=== PATIENT | female | born 1955 | race Caucasian/White ===

== ENCOUNTER 2017-07-14 07:30 | Inpatient (IN) | payer OTHER ==
[~2017-07-14] VITALS: Ht 167.6 cm; Wt 88.5 kg
[~2017-07-14 07:30] MED LIST: ASPIR 8181 MG ORAL; AZOR 5-40 MG T1 EACH ORAL; IBUPROFEN600 MG ORAL; TRAMADOL HCL50 MG ORAL; XANAX0.5 MG ORAL
[2017-08-04] VITALS (14 sets, daily range): BP systolic 94–120; BP diastolic 36–67
[2017-08-04] MEDS ORDERED: BREO ELLIPTA 21 EACH IH (07:08)
[2017-08-04] MEDS ORDERED: LIPITOR20 MG ORAL (07:08)
[2017-08-04] MEDS ORDERED: NORCO 5-325 TA1 EACH ORAL (07:08)
[2017-08-04] MEDS ORDERED: PROVENTIL HFA6.7 G1 IH (07:08)
[2017-08-04] MEDS ORDERED: METOPROLOL SUCC50 MG ORAL (07:08)
[2017-08-04] MEDS ORDERED: SPIRONOLACTONE100 MG ORAL (07:08)
[2017-08-04] MEDS ORDERED: EPINEPHrine 1mg/1ml Amp ONE (07:30)
[2017-08-04] MEDS ORDERED: Pantoprazole Inj ONE ×2 (07:30→07:33)
[2017-08-04] MEDS ORDERED: Thrombin 5000 units TOPIC ONE ×2 (07:31→13:27)
[2017-08-04] MEDS ORDERED: Thrombin 5000 units spray kit TOPIC ONE ×2 (07:31→07:33)
[2017-08-04] MEDS ORDERED: Bacitracin 50000 Units Vial ONE (07:32)
[2017-08-04] MEDS ORDERED: Gelfoam Absorbable 1gm powder pkt TOPIC ONE (07:32)
[2017-08-04] MEDS ORDERED: Bupivacaine 0.5% Inj 30 ml vial INJ ONE (07:32)
[2017-08-04] MEDS ORDERED: Succinylcholine 20mg/ml 10ml vial ONE (07:33)
[2017-08-04] MEDS ORDERED: Zemuron 50mg/5ml Inj IV ONE (07:33)
[2017-08-04] MEDS ORDERED: fentaNYL 100 mcg/2 mL IV ONE ×2 (07:37→09:24)
[2017-08-04] MEDS ORDERED: Midazolam 2mg/2ml Inj ONE (07:37)
[2017-08-04] MEDS ORDERED: Lidocaine 1% MPF 10mg/ml 5ml ONE (07:42)
[2017-08-04] MEDS ORDERED: NS Irrig 1000ml ONE (08:00)
[2017-08-04] MEDS ORDERED: Propofol 1,000mg/ 100ml btl IV ONE (08:00)
[2017-08-04] MEDS ORDERED: Sterile Water Irrig 1000ml IRRIG ONE (08:00)
[2017-08-04] MEDS ORDERED: Vancomycin 1gm inj IVPB ONE (08:23)
--- NOTE | 2017-08-04 08:28 | Anethesia Preoperative Eval ---
Anesthesia Pre-op PMH/ROS General Date of Evaluation: Aug 04, 2017 Time of Evaluation: 08:17 Anesthesiologist: Marie ASA Score: ASA 2 Mallampati Score Class I : Soft palate, uvula, fauces, pillars visible Class II: Soft palate, uvula, fauces visible Class III: Soft palate, base of uvula visible Class IV: Only hard plate visible Mallampati Classification: Class II Surgeon: William Diagnosis: Lumbar radiculopathy Surgical Procedure: ALIF L5-S1 Anesthesia History: none Allergies: Coded Allergies: AMLODIPINE (Verified Allergy, Severe, ICY COLD FEELING ALL OVER THE BODY , 08/04/17) Chicken Meat (Verified Allergy, Severe, Hives, rash, anaphylaxis , 08/04/17 ) MORPHINE (Verified Allergy, Severe, Extremem contact dermatitis, 08/04/17) LISINOPRIL (Verified Allergy, Intermediate, white checkered spots all over body, 08/04/17) ADHESIVE TAPE (Verified Adverse Reaction, Severe, Itching/Rash, 08/04/17) CODEINE (Verified Adverse Reaction, Severe, Itching, 08/04/17) Past Medical History Cardiovascular: Reports: HTN, CAD - negative perfusion scan; Denies: MO, valve dz, arrhythmia, other Pulmonary: Denies: asthma, COPD, LUZ MARIA, other Gastrointestinal/Genitourinary: Reports: GERD; Denies: CRI, ESRD, other Neurologic/Psychiatric: Reports: depression/anxiety, other - chronic pain; Denies: dementia, CVA, TIA Endocrine: Reports: steroids - multiple epidural injections; Denies: DM, hypothyroidism, other HEENT: Denies: cataract (L), cataract (R), glaucoma, ANDREAFSKI (L), ANDREAFSKI (R), other Hematology/Immune: Denies: anemia, DVT, bleeding disorder, other Musculoskeletal/Integumentary: Denies: OA, RA, DJD, DDD, edema, other Other: other - overweight PMH Narrative: as above PSxH Narrative: Cervical spine x 2, hysterectomy. Anesthesia Pre-op Phys. Exam Physician Exam Last Vital Signs Date Time Temp Pulse Resp B/P (MAP) Pulse Ox O2 Delivery O2 Flow Rate FiO2 08/04/17 07:09 97.9 56 18 106/67 97 Room Air 97.9 Constitutional: NAD Neurologic: CN 2-12 intact Cardiovascular: RRR, no M/R/G Respiratory: CTA Gastrointestinal: S/NT/ND Airway Exam Mallampati Score: Class II MO: full Neck: stiff ROM: limited Teeth: intact Dentures: no upper, no lower Anesthesia Pre-op A/P Labs see chart Studies Pre-op Studies: EKG - NSR, CXR - WNL, echo - EF 55% Risk Assessment & Plan Assessment: ASA 2 Plan: GA with ETT PONV prevention, neuromonitoring Status Change Before Surgery: No Pre-Antibiotics Drug: Vanco 1 gr. Given Within 1 Hr of Incision: Yes Time Given: 09:20 LUIS CASTILLO M.D. Aug 04, 2017 08:28
--- NOTE | 2017-08-04 08:32 | Pre-Procedure Note/Attestation ---
Pre-Procedure Note/Attestation Complete Prior to Procedure Planned Procedure: not applicable Procedure Narrative: L5-S1 ALIF Indications for Procedure Pre-Operative Diagnosis: L5-S1 with Back pain and left radiculopathy Attestation I attest that I discussed the nature of the procedure; its benefits; risks and complications; and alternatives (and the risks and benefits of such alternatives ), prior to the procedure, with the patient (or the patient's legal merchandiser retail representative). I attest that, if there was a reasonable possibility of needing a blood transfusion, the patient (or the patient's legal merchandiser retail representative) was given the [facility] standardized written summary, pursuant to the Asif Paulina Blood Safety Act ([place] Health and Safety Code # 1645, as amended). I attest that I re-evaluated the patient just prior to the surgery and that there has been no change in the patient's H&P, except as documented below: Odell Thomas Aug 04, 2017 08:32
[2017-08-04] MEDS ORDERED: Heparin 5000 units/ml inj ONE (09:21)
[2017-08-04] MEDS ORDERED: Ketorolac 30mg Inj ONE (09:22)
[2017-08-04] MEDS ORDERED: Neostigmine 1mg/ml 10ml Inj ONE (09:37)
[2017-08-04] MEDS ORDERED: Glycopyrrolate 0.2mg/ml 1ml Vial ONE (09:40)
[2017-08-04] MEDS ORDERED: LR 1000ml 1,000 ML IVLG SCH (09:47)
[2017-08-04] MEDS ORDERED: Meperidine 50mg/ml Inj(FOR RIGORS ONLY) IV PRN (10:00)
[2017-08-04] MEDS ORDERED: Midazolam 2mg/2ml Inj IVP PRN (10:00)
[2017-08-04] MEDS ORDERED: DiphenhydrAMINE 50mg/ml Inj IVP PRN (10:00)
[2017-08-04] MEDS ORDERED: Ketorolac 30mg Inj IV PRN (10:00)
[2017-08-04] MEDS ORDERED: Hydromorphone 0.5mg/0.5ml inj IVP PRN (10:00)
[2017-08-04] MEDS ORDERED: Acetaminophen (Non formulary) 100 ML IV ONE (10:00)
[2017-08-04] MEDS ORDERED: Ropivacaine 5mg/ml Vial 30ml INJ ONE ×2 (10:53→10:59)
--- NOTE | 2017-08-04 11:19 | Brief Operative Note ---
Immediate Post Operative Note Operative Note Pre-op Diagnosis: L5-S1 with Back pain and left radiculopathy Post-op Diagnosis: same as pre-op - Low back pain with radiculopathy Anesthesia: general Specimen: yes Complications: none Condition: stable Fluids: NA Estimated Blood Loss: volume - 30 ml Drains: none Implant(s) used?: Yes - DepApieron-Odell Davila Aug 04, 2017 11:19
--- NOTE | 2017-08-04 12:13 | Diagnostic Imaging Report ---
Indication: Intraoperative imaging Technique: Intraoperative images Comparison: none Findings: Intraoperative images demonstrate anterior fusion at what is presumably L5-S1. Impression: Intraoperative imaging, as described
--- NOTE | 2017-08-04 12:52 | Immediate Post-Op Evaluation ---
Immediate Post-Op Evalulation Immediate Post-Op Evalulation Procedure: ALIF l4-L5 Date of Evaluation: Aug 04, 2017 Time of Evaluation: 11:20 IV Fluids: 1200 Blood Products: none Estimated Blood Loss: 100 Urinary Output: 150 Blood Pressure Systolic: 98 Blood Pressure Diastolic: 48 Pulse Rate: 74 Respiratory Rate: 20 O2 Sat by Pulse Oximetry: 98 Temperature (Fahrenheit): 97.8 Pain Score (1-10): 1 Nausea: No Vomiting: No Complications none Patient Status: reacts, patent, extubated, none Hydration Status: adequate LUIS CASTILLO M.D. Aug 04, 2017 12:52
[2017-08-04] MEDS ORDERED: Methocarbamol 500mg tab ORAL PRN (13:30)
[2017-08-04] MEDS ORDERED: Milk of Magnesia 30ml Ud ORAL PRN (13:30)
[2017-08-04] MEDS: Docusate 100mg cap ORAL SCH (17:38)
--- NOTE | 2017-08-04 20:28 | History and Physical ---
History of Present Illness General Date patient seen: Aug 04, 2017 Time patient seen: 20:23 Present Illness HPI I was asked to eval the patient in internal medicine consultation she ahs chele peters fusion she denies any ches tpain no palpation no diplopia Allergies: Coded Allergies: AMLODIPINE (Verified Allergy, Severe, ICY COLD FEELING ALL OVER THE BODY , 08/04/17) Chicken Meat (Verified Allergy, Severe, Hives, rash, anaphylaxis , 08/04/17 ) MORPHINE (Verified Allergy, Severe, Extremem contact dermatitis, 08/04/17) LISINOPRIL (Verified Allergy, Intermediate, white checkered spots all over body, 08/04/17) ADHESIVE TAPE (Verified Adverse Reaction, Severe, Itching/Rash, 08/04/17) CODEINE (Verified Adverse Reaction, Severe, Itching, 08/04/17) Medication History Scheduled Aspirin* (Aspir 81*), 81 MG ORAL DAILY, (Reported) Atorvastatin Calcium* (Lipitor*), 20 MG ORAL BEDTIME, (Reported) Fluticasone/Vilanterol (Breo Ellipta 200-25 Mcg INH), 1 EACH IH DAILY, (Reported ) Metoprolol Succinate* (Metoprolol Succinate*), 50 MG ORAL DAILY, (Reported) Spironolactone* (Spironolactone*), 50 MG ORAL DAILY, (Reported) Scheduled PRN Alprazolam* (Xanax*), 0.5 MG ORAL DAILY PRN for For Anxiety, (Reported) Hydrocodone Bit/Acetaminophen 5-325* ([place] 5-325*), 1 TAB ORAL Q6H PRN for For Pain, (Reported) Miscellaneous Medications Albuterol Sulfate (Proventil Hfa), 6.7 GM IH, (Reported) Discontinued Medications Amlodipine Bes/Olmesartan Med (Mac 5-40 Mg Tablet), 1 TAB ORAL DAILY, (Reported ) Discontinued Reason: Pt stopped taking med Ibuprofen* (Motrin*), 800 MG ORAL THREE TIMES A DAY, (Reported) Discontinued Reason: Pt stopped taking med Tramadol Hcl* (Ultram*), 50 MG ORAL Q6H PRN for For Pain, (Reported) Discontinued Reason: Pt stopped taking med Patient History Healthcare decision maker CAITLIN PADILLA - Resuscitation status Full Code Advanced Directive on File No Patient History Narrative past medical history hyeprtenison hyperlipid chicken allergy anxiety disorder Past surgical history cervical fusion hysterectomy right foot surgery medicaiton prio rto admit lipitor 20 daily metoprolol 50 daily alprazolam prn allergies morphjine, viocoin nad Losartan Review of Systems Constitutional: Reports: no symptoms Eye: Reports: no symptoms ENT: Reports: no symptoms Respiratory: Reports: no symptoms Cardiovascular: Reports: no symptoms Musculoskeletal: Reports: other - has painnad is itching Physical Exam General Appearance: alert HEENT: normocephalic Neck: other - no jvd Respiratory/Chest: lungs clear Cardiovascular/Chest: normal rate, regular rhythm Extremities: other - no clubbing or cyanosis Last 24 Hour Vital Signs Date Time Temp Pulse Resp B/P (MAP) Pulse Ox O2 Delivery O2 Flow Rate FiO2 08/04/17 18:08 97.8 08/04/17 17:38 97.8 08/04/17 16:00 97.2 93 19 110/52 96 97.2 08/04/17 15:30 97.8 08/04/17 13:28 97.8 08/04/17 13:06 97.8 08/04/17 13:00 97.0 52 16 120/50 100 97.0 08/04/17 12:52 208.0 74 20 98 08/04/17 12:50 98.0 52 15 111/52 97 Nasal Cannula 3.0 98.0 08/04/17 12:50 97.8 08/04/17 12:37 97.9 08/04/17 12:35 51 19 102/42 96 Nasal Cannula 3.0 08/04/17 12:20 50 20 94/41 96 Nasal Cannula 3.0 08/04/17 12:06 52 19 103/46 96 Nasal Cannula 3.0 08/04/17 12:06 97.9 08/04/17 12:02 97.8 08/04/17 11:50 51 19 104/38 96 Nasal Cannula 3.0 08/04/17 11:40 50 19 107/48 96 Nasal Cannula 3.0 08/04/17 11:32 53 14 106/46 99 Nasal Cannula 3.0 08/04/17 11:32 97.9 08/04/17 11:25 53 12 100/52 99 Simple Mask 6.0 08/04/17 11:20 59 16 110/36 99 Simple Mask 6.0 08/04/17 11:15 97.9 57 16 98/42 99 Simple Mask 6.0 97.9 08/04/17 07:09 97.9 56 18 106/67 97 Room Air 97.9 Intake and Output 08/03/17 08/04/17 19:00 07:00 # Voids 1 Height (Feet): 5 Height (Inches): 6.00 Weight (Pounds): 195 Medications Current Medications Medications (Trade) Dose Ordered Sig/Hai Route PRN Reason Start Time Stop Time Status Last Admin Dose Admin Acetaminophen (Tylenol) 650 mg Q4H PRN ORAL headache or temp>101 08/04/17 13:30 09/03/17 13:29 Acetaminophen/ Hydrocodone Bitart ([place] 5/325) 1 tab Q3H PRN ORAL Mild Pain (Pain Scale 1-3) 08/04/17 13:30 08/11/17 13:29 Docusate Sodium (Colace) 100 mg TWICE A DAY ORAL 08/04/17 18:00 09/03/17 17:59 08/04/17 17:38 Hydromorphone HCl (Dilaudid) 0.5 mg Q2H PRN SUBQ Severe Pain (Pain Scale 7-10) 08/04/17 13:30 08/11/17 13:29 08/04/17 17:38 Magnesium Hydroxide (Mom) 30 ml QIDPRN PRN ORAL Constipation 08/04/17 13:30 09/03/17 13:29 Methocarbamol (Robaxin) 1,000 mg Q6H PRN ORAL muscle spasms 08/04/17 13:30 09/03/17 13:29 Ondansetron HCl (Zofran) 4 mg Q6H PRN IVP Nausea & Vomiting 08/04/17 13:30 09/03/17 13:29 Sodium Chloride 1,000 ml @ 75 mls/hr [id number] IV 08/04/17 12:15 09/03/17 12:14 Assessment/Plan Status Narrative s/p complex spoine fusion perioperative antibioti cprophylaxis given PT OT DVT PROPHYALXIS SHE IS ION MULTIPLE MEDS WILL FOLLOW CBC AND BMP DAILY MILAGROS MARROQUIN Aug 04, 2017 20:28
[2017-08-04] MEDS: Norco 5mg/325mg tab ORAL PRN (20:56)
--- NOTE | 2017-08-04 22:30 | Operative Note - Dictated ---
DATE OF OPERATION: 08/04/2017 VASCULAR SURGEON: Kirit Maya M.D. SPINE SURGEON: Odell Thomas D.O. Shelby Millard M.D. PREOPERATIVE DIAGNOSIS: Degenerative disc disease. POSTOPERATIVE DIAGNOSIS: Degenerative disc disease. PROCEDURE PERFORMED: Anterior retroperitoneal exposure of L5-S1 vertebral interspace. INDICATIONS: This is a very pleasant female, who is seen in my office prior to surgery. She had a prior via transverse lower abdominal incision. She has no prior history of deep venous thrombosis or bleeding complications. She is made aware of the need for abdominal incision, possibility of vascular injury, possible need for blood transfusion, and deep venous thrombosis were all explicitly discussed with her. DESCRIPTION OF FINDINGS: A prior incision was used. A left retroperitoneal approach was used. There was no peritoneal or ureteral violation. There is no vascular injury. Exposure of L5-S1 was obtained below the iliac bifurcation with retraction of left iliac vessels superiorly and laterally. On completion, the peritoneum and ureter were intact. Iliac vessels were intact. Fluoroscopy was used to confirm the appropriate level prior to instrumentation. DESCRIPTION OF PROCEDURE: The patient was taken to the operative room. General anesthesia was used. IV antibiotics were given. The patient's abdomen was prepped and draped. Appropriate time-out for procedures were taken. Her prior incision was opened transversely and flaps were raised superiorly. The anterior abdominal fascia was incised longitudinally midline. A plane was identified posterior to the left rectus abdominis developed posterolaterally towards the patient's left. The retroperitoneal space entered below the arcuate line. The peritoneum and ureter were mobilized towards the patient's right exposing the left common iliac artery and vein. Dissection was carried on undersurface of left common iliac vein. The middle sacral artery and vein were ligated using bipolar electrocautery. On the left, iliac vessels were retracted superior and laterally anterior surface of L5 and S1. The Omni retractor was set in place. Fluoroscopy was then used to confirm the appropriate level. Instrumentation was performed at L5-S1 dictated separately. Upon completion, retractor was gently removed. Peritoneum and ureter were intact. Iliac vessels are intact. Anterior fascia was then closed using #1 PDS in a running fashion and the skin and subcutaneous tissue were closed with 3-0 Vicryl and 4-0 Monocryl in a running subcuticular closure technique. Estimated blood loss less than 50 mL. Complications, none. Kirit Maya M.D. DR: ISMAEL JOB#: [id number] CC:
--- NOTE | 2017-08-04 23:30 | Operative Note - Dictated ---
DATE OF OPERATION: 08/04/2017 INDICATION FOR SURGERY: The patient is a pleasant female with signs and symptoms of intractable back pain and left greater than right lumbar radiculopathy. She had attempted and failed conservative measures. Surgical and nonsurgical options were discussed. The patient requested to proceed with surgical intervention. RISKS AND BENEFITS DISCUSSION: The patient was appraised of all objectives, benefits, risks and potential complications of the procedure including, but not limited to worsening occurring status and possible need for further procedures, the risk of infection, headaches, CSF leak, possible spinal cord injury, process, injury to major blood vessels causing hemorrhage, stroke, loss of function, even . No assurance is given whether the symptoms had improved following procedure. Informed consent was obtained and secured in the chart. After the patient voiced understanding of these risks, to proceed with the operation. PREOPERATIVE DIAGNOSES: 1. L5-S1 stenosis. 2. Lumbar radiculopathy. 3. Intractable back pain. POSTOPERATIVE DIAGNOSES: 1. L5-S1 stenosis. 2. Lumbar radiculopathy. 3. Intractable back pain. OPERATION PERFORMED: 1. L5-S1 anterior lumbar interbody arthrodesis and discectomy. 2. Complication of bi-mechanical interbody device with integrated instrumentation at L5-S1 using [id number] instrumentation. 3. Use of autograft. 4. Use of allograft using Alejandro and BMP. 5. Use of microscope. 6. Use of fluoroscope. 7. Neuromonitoring. SURGEON: Odell Thomas M.D. CO-SURGEON: Dr. Maya for access. WAX PATTERN REPAIRER SURGEON: Dr. Millard. ANESTHESIA: GETA. ESTIMATED BLOOD LOSS: For my portion of procedure is approximately 30 mL. FINDINGS: Severe stenosis in the foramina and diskitis L5-S1. SPECIMEN SENT: L5-S1 disc removed. COMPLICATIONS: None. TECHNIQUE: Please refer to Dr. Maya's dictation for the access to the L5-S1 level including closure as well. At this point, when access was completed by Dr. Maya, the L5-S1 was confirmed via fluoroscope imaging. A complete diskectomy was then carried out. Arthrodesis of the end-plates was performed. Microscope was brought in and afterwards the left neuroforamen has localized and decompressive foraminotomy was carried out using fiber surgical techniques. Afterwards, the area was copiously irrigated with antibiotic solution. Excellent decompression was achieved. The interbody was sized appropriately and a bi-mechanical cage filled with BMP allograft and autograft was then placed into the interbody space. Four integrated titanium screws were then advanced into the L5 and S1 vertebral bodies. Excellent fluoroscopy was performed confirming excellent positioning of all instrumentation. The area was then copiously irrigated with antibiotic solution. Excellent hemostasis maintained. Final x-rays performed again. Afterwards, Dr. Maya returns to complete this closure. Neural monitoring was stable throughout the entire diskectomy portion of the case. Afterwards, the patient was transferred back to the hospital bed and transferred to recovery in stable condition. She was examined and recovery after the procedure, and was able to move all extremities without difficulty. Odell Thomas MD DR: SANTANA JOB#: [id number] CC:
[2017-08-05] VITALS: BP 101/52
[2017-08-05 04:00] VITALS: BP 122/60
[2017-08-05] MEDS: Norco 5mg/325mg tab ORAL PRN ×2 (05:56→13:48)
[2017-08-05 06:22] LABS: BASOPHILS % (AUTO) 0.7 % (0.0-2.0); EOSINOPHILS % (AUTO) 2.3 % (0.0-3.0); HEMATOCRIT 32.7 % (37.0-47.0); HEMOGLOBIN 11.6 G/DL (12.0-16.0); LYMPHOCYTES % (AUTO) 27.4 % (20.0-45.0); MEAN CORPUSCULAR VOLUME 93 FL (80-99); NEUTROPHILS % (AUTO) 58.6 % (45.0-75.0); PLATELET COUNT 226 K/UL (150-450); RED BLOOD COUNT 3.54 M/UL (4.20-5.40); RED CELL DISTRIBUTION WIDTH 10.7 % (11.6-14.8); WHITE BLOOD COUNT 8.1 K/UL (4.8-10.8)
[2017-08-05 06:42] LABS: ANION GAP 3 mmol/L (5-15); BLOOD UREA NITROGEN 10 mg/dL (7-18); CALCIUM 8.2 MG/DL (8.5-10.1); CARBON DIOXIDE 28 MMOL/L (21-32); CHLORIDE 106 MMOL/L (98-107); CREATININE 0.9 MG/DL (0.55-1.30); POTASSIUM 4.3 MMOL/L (3.5-5.1); SODIUM 137 MMOL/L (136-145)
[2017-08-05 08:00] VITALS: BP 108/47
--- NOTE | 2017-08-05 09:01 | General Progress Note ---
Assessment/Plan Status Narrative s/p Complex spine surgery PT OT dvt prophylaxis ambulate hold bp meds if systolic less than 120 discussed withnursing staff Subjective Date patient seen: Aug 05, 2017 Time patient seen: 09:00 Constitutional: Reports: no symptoms HEENT: Reports: no symptoms Cardiovascular: Reports: no symptoms Allergies: Coded Allergies: AMLODIPINE (Verified Allergy, Severe, ICY COLD FEELING ALL OVER THE BODY , 08/04/17) Chicken Meat (Verified Allergy, Severe, Hives, rash, anaphylaxis , 08/04/17 ) MORPHINE (Verified Allergy, Severe, Extremem contact dermatitis, 08/04/17) LISINOPRIL (Verified Allergy, Intermediate, white checkered spots all over body, 08/04/17) ADHESIVE TAPE (Verified Adverse Reaction, Severe, Itching/Rash, 08/04/17) CODEINE (Verified Adverse Reaction, Severe, Itching, 08/04/17) Subjective has not passed gas no fever no chills no eliza stpain Objective Last 24 Hour Vital Signs Date Time Temp Pulse Resp B/P (MAP) Pulse Ox O2 Delivery O2 Flow Rate FiO2 08/05/17 08:00 97.2 73 18 108/47 95 97.2 08/05/17 04:00 97.7 65 16 122/60 98 Room Air 97.7 08/05/17 00:00 98.0 55 18 101/52 98 Room Air 98.0 08/04/17 20:00 96.3 51 18 119/51 97 Room Air 96.3 08/04/17 18:08 97.8 08/04/17 17:38 97.8 08/04/17 16:00 97.2 93 19 110/52 96 97.2 08/04/17 15:30 97.8 08/04/17 13:28 97.8 08/04/17 13:06 97.8 08/04/17 13:00 97.0 52 16 120/50 100 97.0 08/04/17 12:52 208.0 74 20 98 08/04/17 12:50 98.0 52 15 111/52 97 Nasal Cannula 3.0 98.0 08/04/17 12:50 97.8 08/04/17 12:37 97.9 08/04/17 12:35 51 19 102/42 96 Nasal Cannula 3.0 08/04/17 12:20 50 20 94/41 96 Nasal Cannula 3.0 08/04/17 12:06 52 19 103/46 96 Nasal Cannula 3.0 08/04/17 12:06 97.9 08/04/17 12:02 97.8 08/04/17 11:50 51 19 104/38 96 Nasal Cannula 3.0 08/04/17 11:40 50 19 107/48 96 Nasal Cannula 3.0 08/04/17 11:32 53 14 106/46 99 Nasal Cannula 3.0 08/04/17 11:32 97.9 08/04/17 11:25 53 12 100/52 99 Simple Mask 6.0 08/04/17 11:20 59 16 110/36 99 Simple Mask 6.0 08/04/17 11:15 97.9 57 16 98/42 99 Simple Mask 6.0 97.9 Intake and Output 08/04/17 08/05/17 19:00 07:00 Intake Total 2475 ml 825 ml Output Total 250 ml Balance 2225 ml 825 ml Intake Oral 200 ml IV Total 2275 ml 825 ml Output Urine Total 150 ml Estimated Blood Loss 100 ml Laboratory Tests 08/05/17 05:30: White Blood Count 8.1, Red Blood Count 3.54L, Hemoglobin 11.6L, Hematocrit 32.7L , Mean Corpuscular Volume 93, Mean Corpuscular Hemoglobin 32.7H, Mean Corpuscular Hemoglobin Concent 35.3, Red Cell Distribution Width 10.7L, Platelet Count 226, Mean Platelet Volume 7.4, Neutrophils (%) (Auto) 58.6, Lymphocytes (%) (Auto) 27.4, Monocytes (%) (Auto) 11.0H, Eosinophils (%) (Auto) 2.3, Basophils (%) (Auto) 0.7, Sodium Level 137, Potassium Level 4.3, Chloride Level 106, Carbon Dioxide Level 28, Anion Gap 3L, Blood Urea Nitrogen 10, Creatinine 0.9, Estimat Glomerular Filtration Rate > 60, Glucose Level 103, Calcium Level 8.2L Height (Feet): 5 Height (Inches): 6.00 Weight (Pounds): 195 General Appearance: WD/WN EENT: PERRL/EOMI Cardiovascular: normal rate, regular rhythm, no JVD Respiratory/Chest: lungs clear MILAGROS MARROQUIN Aug 05, 2017 09:01
[2017-08-05] MEDS: Docusate 100mg cap ORAL SCH ×2 (09:17→17:11)
[2017-08-05 12:00] VITALS: BP 114/61
[2017-08-05 16:00] VITALS: BP 114/61
[2017-08-05 20:00] VITALS: BP 117/69
[2017-08-05] MEDS: Metoprolol Tartrate 50mg tab ORAL SCH (20:55)
[2017-08-05] MEDS ORDERED: Metoprolol Tartrate 50mg tab ORAL SCH (21:00)
[2017-08-06] VITALS: BP 145/69
[2017-08-06] MEDS: Norco 5mg/325mg tab ORAL PRN ×2 (00:48→08:43)
[2017-08-06 04:00] VITALS: BP 125/82
[2017-08-06 08:00] VITALS: BP 117/70
[2017-08-06 08:25] LABS: BASOPHILS % (AUTO) 0.9 % (0.0-2.0); HEMATOCRIT 34.3 % (37.0-47.0); HEMOGLOBIN 12.6 G/DL (12.0-16.0); LYMPHOCYTES % (AUTO) 16.2 % (20.0-45.0); MEAN CORPUSCULAR VOLUME 93 FL (80-99); MONOCYTES % (AUTO) 13.1 % (1.0-10.0); NEUTROPHILS % (AUTO) 67.8 % (45.0-75.0); PLATELET COUNT 232 K/UL (150-450); RED BLOOD COUNT 3.71 M/UL (4.20-5.40); RED CELL DISTRIBUTION WIDTH 10.8 % (11.6-14.8)
[2017-08-06] MEDS: Docusate 100mg cap ORAL SCH ×2 (08:40→18:17)
[2017-08-06] MEDS: Metoprolol Tartrate 50mg tab ORAL SCH ×2 (08:41→20:47)
[2017-08-06 09:00] LABS: ANION GAP 7 mmol/L (5-15); BLOOD UREA NITROGEN 6 mg/dL (7-18); CALCIUM 8.5 MG/DL (8.5-10.1); CARBON DIOXIDE 27 MMOL/L (21-32); CHLORIDE 107 MMOL/L (98-107); CREATININE 0.9 MG/DL (0.55-1.30); POTASSIUM 4.4 MMOL/L (3.5-5.1); SODIUM 141 MMOL/L (136-145)
[2017-08-06 12:00] VITALS: BP 116/63
[2017-08-06 16:39] VITALS: BP 129/64
--- NOTE | 2017-08-06 17:41 | General Progress Note ---
Assessment/Plan Status Narrative s/p ALIF no BM yet awai tbm before she goes home kat sanchez passed gas dc home in am norco 10/325 q6 1/2- 1 tab # [address] mora. Subjective Date patient seen: Aug 06, 2017 Time patient seen: 17:40 Constitutional: Reports: no symptoms HEENT: Reports: no symptoms Cardiovascular: Reports: no symptoms Allergies: Coded Allergies: AMLODIPINE (Verified Allergy, Severe, ICY COLD FEELING ALL OVER THE BODY , 08/04/17) Chicken Meat (Verified Allergy, Severe, Hives, rash, anaphylaxis , 08/04/17 ) MORPHINE (Verified Allergy, Severe, Extremem contact dermatitis, 08/04/17) LISINOPRIL (Verified Allergy, Intermediate, white checkered spots all over body, 08/04/17) ADHESIVE TAPE (Verified Adverse Reaction, Severe, Itching/Rash, 08/04/17) CODEINE (Verified Adverse Reaction, Severe, Itching, 08/04/17) Subjective has not passed gas no fever no chills no eliza stpain Objective Last 24 Hour Vital Signs Date Time Temp Pulse Resp B/P (MAP) Pulse Ox O2 Delivery O2 Flow Rate FiO2 08/06/17 16:39 98.4 72 20 129/64 100 Room Air 98.4 08/06/17 12:00 98.4 65 18 116/63 95 Room Air 98.4 08/06/17 08:41 93 117/70 08/06/17 08:00 99.9 93 19 117/70 95 99.9 08/06/17 04:00 97.9 85 17 125/82 97 97.9 08/06/17 00:00 98.8 88 17 145/69 97 98.8 08/05/17 20:55 69 114/61 08/05/17 20:00 98.0 84 18 117/69 98 98.0 Intake and Output 08/05/17 08/06/17 19:00 07:00 Intake Total 1575 ml 480 ml Balance 1575 ml 480 ml Intake Oral 900 ml 480 ml IV Total 675 ml # Voids 3 3 Laboratory Tests 08/06/17 07:50: White Blood Count 9.0, Red Blood Count 3.71L, Hemoglobin 12.6, Hematocrit 34.3L , Mean Corpuscular Volume 93, Mean Corpuscular Hemoglobin 33.9H, Mean Corpuscular Hemoglobin Concent 36.6H, Red Cell Distribution Width 10.8L, Platelet Count 232, Mean Platelet Volume 7.7, Neutrophils (%) (Auto) 67.8, Lymphocytes (%) (Auto) 16.2L, Monocytes (%) (Auto) 13.1H, Eosinophils (%) (Auto ) 2.0, Basophils (%) (Auto) 0.9, Sodium Level 141, Potassium Level 4.4, Chloride Level 107, Carbon Dioxide Level 27, Anion Gap 7, Blood Urea Nitrogen 6L , Creatinine 0.9, Estimat Glomerular Filtration Rate > 60, Glucose Level 155H, Calcium Level 8.5 Height (Feet): 5 Height (Inches): 6.00 Weight (Pounds): 195 General Appearance: WD/WN Cardiovascular: normal rate, regular rhythm, no JVD Respiratory/Chest: lungs clear Abdomen: soft MILAGROS MARROQUIN Aug 06, 2017 17:41
[2017-08-06 20:00] VITALS: BP 135/67
[2017-08-07 06:00] VITALS: BP 129/69
[2017-08-07 08:00] VITALS: BP 126/67
[2017-08-07] MEDS: Docusate 100mg cap ORAL SCH (08:15)
[2017-08-07] MEDS: Metoprolol Tartrate 50mg tab ORAL SCH (08:15)
[2017-08-07 12:00] VITALS: BP 135/85
--- NOTE | 2017-08-09 21:00 | Discharge Summary 2 SIG ---
DATE OF ADMISSION: 08/04/2017 DATE OF DISCHARGE: 08/07/2017 SURGEONS: 1. Odell Thomas M.D. 2. Kirit Maya M.D. BRIEF HOSPITAL COURSE: The patient is a 62-year-old female with symptoms of intractable back pain and left greater than right lumbar radiculopathy. She had attempted and failed conservative measures. She was then admitted for anterior lumbar interbody fusion on L5-S1 by Dr. Thomas and Dr. Maya performing anterior retroperitoneal exposure of L5-S1 vertebral interspace. She tolerated procedure well and postoperatively was given pain management. She was placed on SCDs for DVT prophylaxis. She was encouraged to ambulate and underwent PT and OT evaluation. With return of bowel function, diet was eventually advanced. She was passing flatus. She was eventually cleared for discharge home to continue pain medications and to follow up with Dr. Thomas. FINAL DIAGNOSES: 1. L5-S1 stenosis. 2. Lumbar radiculopathy. 3. Intractable back pain. 4. L5-S1 anterior lumbar interbody arthrodesis and diskectomy. Please refer to operative report. DISPOSITION: The patient was discharged home. DISCHARGE MEDICATIONS: Refer to medication list. DISCHARGE INSTRUCTIONS: Follow up with surgeon in a week. Kendrick Fuller M.D. I have been assigned to dictate discharge summary on this account and I was not involved in the patient's management. Renetta Rashid N.P. DR: LOR JOB#: [id number] CC:
== END 2017-08-07 14:15 | disposition home or self-care (01) | DRG 460 ==
LOC: SDSOVERFLO 08-04 06:26 → 3E 08-04 12:55 → SDSOVERFLO 08-04 20:40 → 3E 08-04 20:41
PROC: 0ST40ZZ Resection of Lumbosacral Disc, Open Approach (ICD-10-PCS; principal; 2017-08-04 08:30)
PROC: 0SG30A0 Fusion of Lumbosacral Joint with Interbody Fusion Device, Anterior Approach, Anterior Column, Open Approach (ICD-10-PCS; principal; 2017-08-04 08:30)
PROC: 4A11X4G Monitoring of Peripheral Nervous Electrical Activity, Intraoperative, External Approach (ICD-10-PCS; principal; 2017-08-04 08:30)
DX: M51.17 Intervertebral disc disorders with radiculopathy, lumbosacral region (principal); M48.07 Spinal stenosis, lumbosacral region
CPT/HCPCS: 36415; 72020; 76000; 80048; 85025; 86850; 86900; 86901; 86920; 87081; 94003; 94150; J2250; J2405; J2710